=== PATIENT | female | born 1970 | race Two or more races ===

== ENCOUNTER 2024-02-19 17:19 | Emergency (ER) | payer MEDICAID ==
[~2024-02-19] VITALS: Ht 152.4 cm; Wt 47.6 kg
[2024-02-19] MEDS ORDERED: KETOROLAC TROMETHAMINE INJ 30 MG/ML VIAL IM ONE (18:00)
[2024-02-19] MEDS ORDERED: KETOROLAC TROMETHAMINE INJ 30 MG/ML VIAL ONE (18:00)
[2024-02-19] MEDS: KETOROLAC TROMETHAMINE INJ 30 MG/ML VIAL IV ONE (18:04)
[2024-02-19] MEDS ORDERED: MORPHINE SULFATE INJ 2 MG/ML DISP.SYRIN ONE (19:09)
[2024-02-19] MEDS: MORPHINE SULFATE INJ 2 MG/ML DISP.SYRIN IV ONE (19:15)
[2024-02-19] MEDS ORDERED: IBUP-1957 PO (20:54)
[2024-02-19] MEDS ORDERED: HYDR-3976 GT (20:54)
[2024-02-19 21:27] VITALS: BP 133/80; TEMP 98.2; O2SAT 100
== END 2024-02-19 21:27 | disposition home or self-care (01) ==
LOC: ER 17:20
DX: S52.611A Displaced fracture of right ulna styloid process, initial encounter for closed fracture (principal); S52.591A Other fractures of lower end of right radius, initial encounter for closed fracture; F17.200 Nicotine dependence, unspecified, uncomplicated; M79.641 Pain in right hand; Z79.1 Long term (current) use of non-steroidal anti-inflammatories (NSAID); Z60.2 Problems related to living alone; W01.0XXA Fall on same level from slipping, tripping and stumbling without subsequent striking against object, initial encounter; Y93.89 Activity, other specified; Y92.89 Other specified places as the place of occurrence of the external cause; Y99.8 Other external cause status
CPT/HCPCS: 29125; 73110; 73130; 96374; 96375; 99284; J1885; J2270